=== PATIENT | male | born 1945 ===

== ENCOUNTER → 2017-03-08 | Outpatient (CLI) | payer OTHER ==
[~2017-03-08] MED LIST: OPTIRAY 300 IV PRN
--- NOTE | 2017-03-08 14:13 | DIAGNOSTIC IMAGING REPORT ---
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 Tomographic sections are considered negative for hydronephrosis. Ureters normal in course and caliber. Bladder is unremarkable. There is no significant post void residual. There are no bladder filling defects. IMPRESSION: Negative study Electronically signed by: Surya Contreras M.D. 03/08/2017 2:11 PM Dictated Date/Time: 03/08/2017 2:10 PM
== END | disposition home or self-care (01) ==
LOC: C.RAD 12:24
PROVIDERS: ATTEND Urology
DX: C67.9 Malignant neoplasm of bladder, unspecified (principal)

== ENCOUNTER → 2017-03-08 | Outpatient (CLI) | payer OTHER | END | disposition home or self-care (01) | LOC: C.PATHSPEC 17:37 | PROVIDERS: ATTEND Urology | DX: D09.9 Carcinoma in situ, unspecified (principal); C67.9 Malignant neoplasm of bladder, unspecified ==